=== PATIENT | female | born 1990 | race Asian ===

== ENCOUNTER 2019-05-24 12:00 | Outpatient (CLI) | payer OTHER ==
[2019-05-24 13:50] LABS: PLATELET COUNT 267 K/uL (152-353)
== END 2019-05-24 22:55 | disposition home or self-care (01) ==
LOC: RAD 12:00
PROVIDERS: Nurse Practitioner Family
DX: L40.8 Other psoriasis (principal); L80 Vitiligo; L93.0 Discoid lupus erythematosus; Z79.899 Other long term (current) drug therapy; M33.92 Dermatopolymyositis, unspecified with myopathy
CPT/HCPCS: 36415; 80053; 82085; 82306; 82550; 82553; 85027; 85651; 86140